=== PATIENT | female | born 1985 | race Hispanic/Latino ===

== ENCOUNTER 2018-07-06 11:50 | Observation (INO) | payer BC ==
[~2018-07-06] VITALS: Ht 157.5 cm; Wt 97.5 kg
[2018-07-06 16:55] VITALS: BP 108/74
--- NOTE | 2018-07-06 17:20 | NUR ---
ADMISSION CLARIFICATION TIME PT RECEIVED BY L&D AT 1720, NOT 0720, IN STABLE CONDITION. FULL ASSESSMENT DONE; SEE NURSING DOCUMENTATION.
[2018-07-06] MEDS: LACTATED RINGERS 1000ML 1,000 ML IV SCH (17:32)
[2018-07-06] MEDS ORDERED: PREN-154 PO (17:45)
[2018-07-06] MEDS: CELESTONE SOLUSPAN 6 MG/ML 5ML VIAL IM SCH (17:46)
[2018-07-06 20:23] VITALS: BP 122/65
[2018-07-07 00:23] VITALS: BP 118/60
[2018-07-07] MEDS: LACTATED RINGERS 1000ML 1,000 ML IV SCH ×2 (00:26→14:28)
[2018-07-07 04:43] VITALS: BP 120/58
[2018-07-07 07:30] VITALS: BP 111/65
[2018-07-07 11:30] VITALS: BP 109/65
[2018-07-07 15:33] VITALS: BP 99/54
[2018-07-07] MEDS: CELESTONE SOLUSPAN 6 MG/ML 5ML VIAL IM SCH (16:36)
--- NOTE | 2018-07-07 17:05 | NUR ---
DISCHARGE PT LEFT UNIT VIA WHEELCHAIR, ACCOMPANIED BY MOTHER. DENIED PAIN AND HAD NO COMPLAINTS. TRANSPORTED BY PERSONAL VEHICLE.
== END 2018-07-07 17:05 | disposition home or self-care (01) ==
LOC: LDH 11:50 → WSH 16:47
PROVIDERS: ADMIT Obstetrics & Gynecology; ATTEND Obstetrics & Gynecology
DX: O41.03X0 Oligohydramnios, third trimester, not applicable or unspecified (principal); Z3A.29 29 weeks gestation of pregnancy
CPT/HCPCS: 76815; 76819; 96372 ×2; G0378 ×30; J0702 ×2; J7120 ×4; 96360; 96361

== ENCOUNTER 2019-03-02 06:21 | Day surgery (SDC) | payer BC ==
[2019-02-28 15:00] VITALS: BP 134/64
[2019-02-28 15:05] LABS: BASOPHILS % (AUTO) 0.6 % (0.0-5.0); EOSINOPHILS % (AUTO) 2.2 % (0.0-8.0); HEMATOCRIT 36.8 % (36-48); LYMPHOCYTES % (AUTO) 33.3 % (21.0-51.0); MEAN CORPUSCULAR HEMOGLOBIN 30.7 pg (27.0-33.0); MEAN CORPUSCULAR HGB CONC 34.6 g/dL (32.0-36.0); MEAN CORPUSCULAR VOLUME 88.7 fL (79-99); MONOCYTES % (AUTO) 4.4 % (3.0-13.0); NEUTROPHILS % (AUTO) 59.5 % (40.0-77.0); PLATELET COUNT (AUTO) 318 K/uL (130-400); RED BLOOD CELL COUNT(AUTO) 4.14 MIL/uL (4.00-5.50); RED CELL DISTRIBUTION WIDTH 12.3 % (11.0-15.5); WHITE BLOOD COUNT (AUTO) 8.1 K/uL (4.8-10.8)
[2019-02-28 15:24] LABS: ALBUMIN 3.4 g/dL (3.5-5.0); BILIRUBIN,DIRECT 0.1 mg/dL (0.0-0.3); BILIRUBIN,TOTAL 0.2 mg/dL (0.2-1.0); TOTAL PROTEIN, SERUM 7.4 g/dL (6.0-8.3)
[~2019-03-02] VITALS: Ht 161.3 cm; Wt 96.4 kg
[2019-03-02] VITALS (17 sets, daily range): BP systolic 106–145; BP diastolic 54–76
[2019-03-02] MEDS ORDERED: LACTATED RINGERS 1000ML 1,000 ML IV ONE (06:54)
[2019-03-02] MEDS ORDERED: LIDOCAINE PF 2% 5ML ABBOJECT ONE (07:38)
[2019-03-02] MEDS ORDERED: SUCCINYLCHOLINE 200MG/10ML SYR ONE (07:38)
[2019-03-02] MEDS ORDERED: DEXAMETHASONE SOD PHOSPHATE 10MG/ML 1ML VIAL ONE (07:38)
[2019-03-02] MEDS ORDERED: ROCURONIUM 10MG/1ML SYR 10 MG/ML ML ONE (07:39)
[2019-03-02] MEDS ORDERED: GLYCOPYRROLATE 1 MG/5 ML SYRINGE ONE (07:39)
[2019-03-02] MEDS ORDERED: NEOSTIGMINE 5MG/5ML SYR IV ONE (07:39)
[2019-03-02] MEDS ORDERED: PROPOFOL 10 MG/ML 20ML VIAL IV ONE (07:39)
[2019-03-02] MEDS ORDERED: MIDAZOLAM HCL 1 MG/ML 2ML VIAL ONE (07:39)
[2019-03-02] MEDS ORDERED: HEPARIN SODIUM 1000UNIT/ML 10ML VIAL ONE (07:48)
[2019-03-02] MEDS ORDERED: FENTANYL CITRATE PF 50 MCG/1 ML 2ML VIAL ONE ×3 (08:18→08:59)
[2019-03-02] MEDS ORDERED: MEPERIDINE-PF 25 MG/ML SYG ONE ×2 (08:49→09:08)
[2019-03-02] MEDS ORDERED: ONDANSETRON HCL 4 MG/2 ML VIAL ONE (10:21)
--- NOTE | 2019-03-02 10:25 | NUR ---
NAUSEA PT COMPLAINED OF A LITTLE NAUSEA, NO VOMITING NOTED. PT STATES SHE WANTS MEDICINE FOR NAUSEA. ZOFRAN 4MG IV GIVEN, PT TOLERATED WELL.
--- NOTE | 2019-03-02 10:40 | NUR ---
DISCHARGE PT DISCHARGED VIA WHEELCHAIR WITH , MOTHER. PT STABLE. PT STATES SHE IS DOING OKAY. TOLERATED ORAL FLUIDS, CRACKERS WELL, NO VOMITING NOTED. ABDOMEN REMAINED SOFT, BAND AIDS X4 TO ABDOMEN DRY AND INTACT, NO OOZING NOTED. DISCHARGE INSTRUCTIONS GIVEN TO , VERBALIZED UNDERSTANDING.
== END 2019-03-02 10:40 | disposition home or self-care (01) ==
LOC: DAH 06:21
PROVIDERS: ATTEND Surgery
DX: K80.10 Calculus of gallbladder with chronic cholecystitis without obstruction (principal); E66.9 Obesity, unspecified; Z68.38 Body mass index [BMI] 38.0-38.9, adult; Z98.890 Other specified postprocedural states; Z72.89 Other problems related to lifestyle; Z82.49 Family history of ischemic heart disease and other diseases of the circulatory system
CPT/HCPCS: 36415; 47562; 80076; 84703; 85025; A4215; A4221; A4222; A4223; A4450; A4600; A4663; A4930; C1769 ×4; J0330; J1100; J1644; J2001; J2175 ×2; J2250; J2405; J2704; J2710; J3010 ×3; J3490; J7030; J7120 ×2